=== PATIENT | female | born 1980 | race Caucasian/White ===

== ENCOUNTER 2019-04-05 08:16 | Outpatient (RCR) | payer OTHER, SELFPAY ==
[2019-04-05 08:30] LABS: Hematocrit 39.8 % (35.0-49.0); Hemoglobin 13.5 g/dL (12.0-15.0); Mean Corpuscular HGB Conc 33.9 g/dL (32.0-36.0); Mean Corpuscular Hemoglobin 30.5 pg (27.0-31.0); Mean Platelet Volume 8.8 fl (9.2-11.8); Platelet Count Result 292 K/mm3 (150-420); Red Blood Count 4.42 M/mm3 (4.20-5.40); Red Cell Distribution Width 12.8 % (11.6-14.4); White Blood Count 7.3 K/mm3 (4.8-10.8)
[2019-04-05 09:04] LABS: Band Neutrophils Percent 0 % (0-6); Basophils Absolute Manual 0.07 K/mm3 (0-0.1); Basophils Percent Manual 1 % (0-1); Eosinophils Absolute Manual 0.94 K/mm3 (0.02-0.5); Eosinophils Percent Manual 13 % (1-6); Lymphocytes Absolute Manual 1.67 K/mm3 (1.1-4.5); Lymphocytes Percent Manual 23 % (18-44); Monocytes Absolute Manual 0.51 K/mm3 (0.1-0.90); Monocytes Percent Manual 7 % (3-9); Neutrophils Absolute Manual 4.08 K/mm3 (1.7-7.2); Neutrophils Percent Manual 56 % (46-73); Total Cells Counted 100
[2019-04-05 09:05] LABS: Platelet Estimate Adequate (Adequate)
[2019-04-05 09:12] LABS: Alanine Aminotransferase 63 U/L (14-59); Albumin Level 3.9 g/dL (3.4-5.0); Alkaline Phosphatase 89 U/L (46-116); Anion Gap 15.3 mmol/L (7-16); Aspartate Amino Transferase 42 U/L (15-37); Bilirubin,Total 0.3 mg/dL (0.00-1.00); Blood Urea Nitrogen 15 mg/dL (7-18); Carbon Dioxide 26 mmol/L (21-32); Chloride 105 mmol/L (98-108); Cholesterol 218 mg/dL (0-200); Estimated Glomerular Filt Rate > 60; Glucose 128 mg/dL (70-99); HDL Direct 51 mg/dL (40-60); LDL Cholesterol Calculated 147 mg/dL (<130); Osmolality Calculated 296 mOsm/kg (285-295); Potassium 4.3 mmol/L (3.5-5.1); Sodium 142 mmol/L (136-145); Total Protein 7.2 g/dL (6.4-8.2); Triglycerides 98 mg/dL (0-150)
== END 2019-07-04 23:59 | disposition home or self-care (01) ==
LOC: CHSLAB 08:16
DX: L70.0 Acne vulgaris (principal); Z79.899 Other long term (current) drug therapy
CPT/HCPCS: 36415; 80053; 80061; 85025

== ENCOUNTER 2020-01-13 09:14 | Outpatient (CLI) | payer OTHER, SELFPAY ==
[2020-01-13 12:11] LABS: Thyroid Stimulating Hormone 0.75 uIU/mL (0.36-3.74)
[2020-01-17 21:44] LABS: Vitamin D 25 Hydroxy 34 ng/mL (30-100)
[2020-01-18 05:24] LABS: FSH 113.8 mIU/mL (***); LH 45.3 mIU/mL (***)
== END 2020-01-13 09:15 | disposition home or self-care (01) ==
LOC: CHSLAB 09:16
PROVIDERS: PCP Nurse Practitioner Family; Visit Provider Obstetrics & Gynecology
DX: N92.6 Irregular menstruation, unspecified (principal)
CPT/HCPCS: 36415; 82306; 83001; 83002; 84436; 84443

== ENCOUNTER 2020-01-29 09:57 | Outpatient (CLI) | payer OTHER, SELFPAY ==
--- NOTE | ~2020-01-29 | MM_ITS ---
EXAMINATION: MM screening supriya BI w karla HISTORY: Screening TECHNIQUE: Craniocaudal and mediolateral oblique 3-D tomosynthesis images were obtained and synthetic 2-D images were generated. CAD analysis was submitted and interpreted. COMPARISON: 06/20/2015 BREAST PARENCHYMAL COMPOSITION: There are scattered areas of fibroglandular density. FINDINGS: There is no evidence of suspicious mass, calcification, or architectural distortion to sugg est malignancy in either breast. There has been no suspicious interval change. IMPRESSION: 1. No mammographic evidence of malignancy. 2. Recommend routine screening mammography in one year. BI-RADS Category 1: Negative Reviewed, dictated and finalized at location A.
== END 2020-01-29 09:58 | disposition home or self-care (01) ==
LOC: CHSIMG 09:59
PROVIDERS: PCP Nurse Practitioner Family; Visit Provider Obstetrics & Gynecology
DX: Z12.31 Encounter for screening mammogram for malignant neoplasm of breast (principal)
CPT/HCPCS: 77063; 77067

== ENCOUNTER 2020-09-16 10:59 | Outpatient (CLI) | payer OTHER, SELFPAY ==
[2020-09-16 11:16] LABS: Hematocrit 39.9 % (35.0-49.0); Hemoglobin 13.5 g/dL (12.0-15.0); Mean Corpuscular HGB Conc 33.8 g/dL (32.0-36.0); Mean Corpuscular Hemoglobin 30.3 pg (27.0-31.0); Mean Corpuscular Volume 89.7 fL (78.0-102.0); Mean Platelet Volume 8.6 fl (9.2-11.8); Platelet Count Result 281 K/mm3 (150-420); Red Blood Count 4.45 M/mm3 (4.20-5.40); Red Cell Distribution Width 12.9 % (11.6-14.4); White Blood Count 5.9 K/mm3 (4.8-10.8)
== END 2020-09-16 11:00 | disposition home or self-care (01) ==
LOC: CHSLAB 11:01
PROVIDERS: PCP Nurse Practitioner Family; Visit Provider Obstetrics & Gynecology
DX: N92.0 Excessive and frequent menstruation with regular cycle (principal)
CPT/HCPCS: 36415; 85027

== ENCOUNTER 2020-09-30 14:28 | Outpatient (CLI) | payer OTHER, SELFPAY ==
--- NOTE | ~2020-09-30 | US_ITS ---
EXAMINATION: US pelvic complete w TV DATE: 09/30/2020 14:55 INDICATION: Right-sided pelvic fullness Comparison:No prior studies for comparison. TECHNIQUE: Multiple transabdominal and endovaginal sonographic images of the pelvis performed. FINDINGS: The uterus measures 8.2 x 3.5 x 5.7 cm. The endometrial complex measures 1.7 cm. The right ovary measures 2.8 x 2.2 x 1.9 cm and the left ovary measures 1.8 x 1.3 x 0.9 cm. There is 1.7 cm right ovarian cyst. There are small follicles in each ovary. Normal doppler signal in both ova supriya. There is no free fluid in the pelvis. There are no abnormal masses seen on either side. IMPRESSION: 1. Endometrial thickening measuring 1.7 cm. 2: Right ovarian cyst measuring 1.7 cm. Reviewed, dictated and finalized at location A.
== END 2020-09-30 14:29 | disposition home or self-care (01) ==
LOC: CHSIMG 14:29
PROVIDERS: PCP Nurse Practitioner Family; Visit Provider Obstetrics & Gynecology
DX: R19.00 Intra-abdominal and pelvic swelling, mass and lump, unspecified site (principal)
CPT/HCPCS: 76830; 76856

== ENCOUNTER 2020-11-19 14:44 | Outpatient (CLI) | payer OTHER, SELFPAY ==
[2020-11-21 07:05] LABS: FSH 107.3 mIU/mL (***)
== END 2020-11-19 14:45 | disposition home or self-care (01) ==
LOC: CHSLAB 14:46
PROVIDERS: PCP Nurse Practitioner Family; Visit Provider Obstetrics & Gynecology
DX: N95.1 Menopausal and female climacteric states (principal)
CPT/HCPCS: 36415; 83001

== ENCOUNTER 2020-12-04 02:34 | Day surgery (SDC) | payer OTHER, SELFPAY ==
[2020-12-03 07:41] VITALS: BMI 34.3
--- NOTE | 2020-12-03 12:49 | P.PNAN_ITS ---
Anes - Initial Pre Proc Eval Procedure: Operation Date: 12/04/20 09:30 Proposed Procedures p Hysteroscopy, Dilation and Curettage - Alfredo Enriquez MD Date/Time: 12/03/20 12:49 Surgeon: Alfredo Enriquez MD Pre Op Diagnosis: abnormal uterine bleeding Patient Data Age: 40 Gender: F Height: 1.68 m Weight: 96.5 kg Allergies Allergy/AdvReac Type Severity Reaction Status Date / Time No Known Allergies Verified 12/04/20 08:07 Home Medications Medication Instructions Recorded Confirmed Type cetirizine 10 mg capsule 10 mg PO DAILY 01/09/20 12/04/20 History esomeprazole magnesium 40 mg PO DAILY 12/04/20 12/04/20 History multivit with min-folic acid 1 tablet PO DAILY 12/04/20 12/04/20 History [Adult One Daily Multivitamin] Patient hx anesthesia problems: none Family hx anesthesia problems: none PMFSH Past Medical History Medical History Acute maxillary sinusitis Allergy status to unspecified drugs, medicaments and biological substances status (~05/2018) Blood glucose abnormal (~2017) Body aches delivery delivered (~2009) Chronic GERD Cough Dysphagia Endometritis PARMINDER (generalized anxiety disorder) Obesity Surgical History Surgical History History of cholecystectomy (~2010) Family History Family History Father Hypertension Family history of elevated blood lipids Cerebrovascular accident Mother Hypertension Grandparent Colon cancer Other Family history of ulcerative colitis Social History Social History Smoking status: Never smoker Second hand tobacco smoke exposure: No Alcohol intake: current Alcohol use details: social Substance use: never Substance use type: does not use Additional living arrangements comments: Daughter 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[employer] Gender identity (if verbalized by the patient): Female Spiritual care concerns: No Anes - Eval Final PreProcedure Day of Procedure 12/03/20 12:49 Patient weight: obese Heart: regular rate and rhythm Lungs: clear to auscultation and normal air movement Airway: Mallampati scale class II Neurological: alert and oriented Last oral intake: >/= 8 hours ASA classification: II Emergent: no Anesthetic plan: proceed Anesthesia type and monitoring: general GIVS and LMA Informed Consent: The patient's anesthetic plan and its attendant risks and benefits were discussed with the patient/family/POA. Questions were solicited and answers provided to the satisfaction of the patient/family/POA.
--- NOTE | 2020-12-04 06:11 | PM.IMHP ---
H&P: HPI History of Present Illness Date/Time: 12/04/20 06:11 Patient with history of intermittent early ovarian failure with recent episode of heavy bleeding. It did improve with last course of progesterone therapy. She had endometrial biopsy which showed treated hyperplasia which is due to progesterone therapy and it showed an endometrial polyp. She was recommended for D and C hysteroscopy for removal of endometrial polyp. Was offered progesterone only IUD which she declines. She has been informed of risk and benefits and alternatives to procedure and risk of not performing the procedure. She agrees with D and C and hysteroscopy and myosure removal of lesion if present. Chief Complaint: Abnormal uterine bleeding Review of Systems Review of Systems: All systems reviewed & are unremarkable except as noted in HPI and below Cardiovascular: Cardiovascular: Reports no additional cardiovascular complaints, Denies chest pain and Denies dyspnea Respiratory: Respiratory: Reports no additional respiratory complaints and Denies dyspnea Gastrointestinal: Gastrointestinal: Reports abdominal pain, Denies change in bowel habits, Denies diarrhea, Denies nausea and Denies vomiting Genitourinary: Genitourinary: Reports pelvic pain Musculoskeletal: Musculoskeletal: Reports back pain Integumentary/Breasts: Skin/Breast: Reports system reviewed and no additional complaints, except as docu Neurologic: Reports system reviewed and no additional complaints, except as documented [facility] Past Medical History Medical History Acute maxillary sinusitis Allergy status to unspecified drugs, medicaments and biological substances status (~05/2018) Blood glucose abnormal (~2017) Body aches delivery delivered (~2009) Chronic GERD Cough Dysphagia Endometritis PARMINDER (generalized anxiety disorder) Obesity Surgical History Surgical History History of cholecystectomy (~2010) Family History Family History Father Hypertension Family history of elevated blood lipids Cerebrovascular accident Mother Hypertension Grandparent Colon cancer Other Family history of ulcerative colitis Social History Social History Smoking status: Never smoker Second hand tobacco smoke exposure: No Alcohol intake: current Alcohol use details: social Substance use: never Substance use type: does not use Additional living arrangements comments: Daughter 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[employer] Gender identity (if verbalized by the patient): Female Spiritual care concerns: No Meds Home Medications and Allergies Home Medications Medication Instructions Recorded Confirmed Type cetirizine 10 mg capsule 10 mg PO DAILY 01/09/20 12/03/20 History omeprazole 40 mg PO DAILY 12/03/20 12/03/20 History Allergies Allergy/AdvReac Type Severity Reaction Status Date / Time No Known Allergies Verified 11/19/20 10:33 Exam Const: Orientation/consciousness: oriented to person and oriented to place HENMT: Head: normal to inspection Eyes: General: appearance normal, both eyes and all related structures Resp: Effort & Inspection: normal respiratory effort Auscultation: clear to auscultation bilaterally Cardio: Rate: regular rate Rhythm: regular rhythm GI: Inspection: normal to inspection GI Palp: No Rebound tenderness present : External Female Exam: normal external appearance Speculum Exam - Vagina: normal appearance of the vagina Speculum Exam - Cervix: normal appearance of the cervix Bimanual exam- vagina & uterus: normal bimanual exam, uterine shape normal and non-tender Bimanual Exam- Adnexa, other: no masses Neuro: General: oriented to person and oriented to place
[2020-12-04] MEDS: ACETAMINOPHEN 500 MG TABLET 1000 MG PO (08:12)
[2020-12-04] MEDS: LACTATED RINGERS 1,000 ML 30 ML IV CONT ×2 (08:15→10:10)
[2020-12-04 08:35] VITALS: BP 136/82; PULSE 93; RESP 20; TEMP 35.9; O2SAT 99
--- NOTE | 2020-12-04 09:15 | WPDHPUPDATE1 ---
History and Physical Update Update Date/Time: 12/04/20 09:15 History and Physical has been reviewed, including an updated exam of the patient. There are NO changes in the patient's condition. Risks, benefits, and alternatives have been discussed and questions answered. Patient agrees to proceed with procedure.
[2020-12-04] MEDS: ceFAZolin 2 GM/D5W 50 ML 2 GM/50 ML BAG IVPB (09:28)
--- NOTE | 2020-12-04 10:04 | P.OP_ITS ---
Procedure Note - Detailed Date of Procedure 12/04/20 Pre-op Diagnosis abnormal uterine bleeding Post-op Diagnosis same Procedure Performed Hysteroscopy and dilation and currettage and excision of endometrial lesion Surgeon Alfredo Enriquez MD Anesthesia MAC and local Indications Abnormal uterine bleeding. Patient with endometrial biopsy in office showing possible endometrial polyp. Findings hyperpigmented area at mid posterior uterine wall, Insufflation fluid media normal saline 750ccI/500cc O Description of Procedure After informed consent was obtained patient was taken to the operating room and adequate IV sedation was administered she was placed in high lithotomy position and prepped and draped in sterile fashion. Attention was turned to the vagina speculum was inserted. Single-tooth tenaculum placed on anterior lip of the cervix. 10 cc of 1% lidocaine was injected at the cervical vaginal interface that 2,5,8 and 10:00 o'clock. The cervix was dilated to a size a Loredo dilator. The hysteroscope was inserted the cavity was visualized. There was an area on the posterior mid uterus that was hyper pigmented glandular area. the MyoSure was then inserted and the hyper pigmented area was removed completely with the MyoSure. There were no other different appearing areas in the cavity. The MyoSure was removed and a curettage was performed. Single- tooth tenaculum removed hemostasis noted at the site the patient tolerated the procedure well sponge count correct. Estimated Blood Loss 5 Pathology yes (1. endometrial curretting of abnormal appearing area of endometrium 2. Currettage) Complications No immediate complications Condition stable Disposition same day
[2020-12-04 10:10] VITALS: BP 123/87; PULSE 84; RESP 16; O2SAT 99
[2020-12-04 10:35] VITALS: BP 125/86; PULSE 71; RESP 16
[2020-12-04 10:50] VITALS: BP 133/89; PULSE 60; RESP 16
== END 2020-12-04 10:56 | disposition home or self-care (01) ==
PROVIDERS: PCP Nurse Practitioner Family; Visit Provider Obstetrics & Gynecology
PROC: 0U5B8ZZ Destruction of Endometrium, Via Natural or Artificial Opening Endoscopic (ICD-10-PCS; CPT 58563; principal; 2020-12-04 09:30)
DX: N93.9 Abnormal uterine and vaginal bleeding, unspecified (principal); N84.0 Polyp of corpus uteri; K21.9 Gastro-esophageal reflux disease without esophagitis; N80.9 Endometriosis, unspecified; F41.1 Generalized anxiety disorder; E66.9 Obesity, unspecified; Z68.34 Body mass index [BMI] 34.0-34.9, adult
CPT/HCPCS: 58558; 88305; A9270; J0690; J1100; J1885; J2250; J2405; J2704; J3010; J7120

== ENCOUNTER 2021-01-28 10:15 | Outpatient (CLI) | payer OTHER, SELFPAY ==
[2021-01-28 10:25] LABS: Hematocrit 39.4 % (35.0-49.0); Mean Corpuscular Hemoglobin 28.8 pg (27.0-31.0); Mean Corpuscular Volume 87.2 fL (78.0-102.0); Mean Platelet Volume 8.7 fl (9.2-11.8); Platelet Count Result 264 K/mm3 (150-420); Red Blood Count 4.52 M/mm3 (4.20-5.40); Red Cell Distribution Width 13.3 % (11.6-14.4); White Blood Count 5.7 K/mm3 (4.8-10.8)
[2021-01-28 11:12] LABS: Band Neutrophils Percent 0 % (0-6); Basophils Absolute Manual 0.05 K/mm3 (0-0.1); Basophils Percent Manual 1 % (0-1); Eosinophils Absolute Manual 0.79 K/mm3 (0.02-0.5); Eosinophils Percent Manual 14 % (1-6); Lymphocytes Absolute Manual 1.99 K/mm3 (1.1-4.5); Lymphocytes Percent Manual 35 % (18-44); Monocytes Absolute Manual 0.22 K/mm3 (0.1-0.90); Monocytes Percent Manual 4 % (3-9); Neutrophils Absolute Manual 2.62 K/mm3 (1.7-7.2); Neutrophils Percent Manual 46 % (46-73); Platelet Estimate Adequate (Adequate); Total Cells Counted 100
[2021-01-28 11:46] LABS: Alanine Aminotransferase 39 U/L (14-59); Alkaline Phosphatase 84 U/L (46-116); Anion Gap 10 mmol/L (8-16); Aspartate Amino Transferase 20 U/L (15-37); Bilirubin,Total 0.4 mg/dL (0.00-1.00); Blood Urea Nitrogen 19 mg/dL (7-18); Calcium 8.9 mg/dL (8.5-10.1); Carbon Dioxide 27 mmol/L (21-32); Chloride 105 mmol/L (98-108); Cholesterol 193 mg/dL (0-200); Estimated Glomerular Filt Rate > 60; Glucose 109 mg/dL (70-99); HDL Direct 62 mg/dL (40-60); LDL Cholesterol Calculated 121 mg/dL (<130); Osmolality Calculated 297 mOsm/kg (285-295); Potassium 4.3 mmol/L (3.5-5.1); Sodium 142 mmol/L (136-145); Total Protein 6.6 g/dL (6.4-8.2); Triglycerides 48 mg/dL (0-150)
[2021-01-28 13:23] LABS: Hemoglobin A1C 5.9 % (<5.7)
== END 2021-01-28 10:16 | disposition home or self-care (01) ==
PROVIDERS: PCP Nurse Practitioner Family; Visit Provider Nurse Practitioner Family
DX: R73.09 Other abnormal glucose (principal); I10 Essential (primary) hypertension
CPT/HCPCS: 36415; 80053; 80061; 83036; 85025

== ENCOUNTER 2021-02-07 08:39 | Outpatient (CLI) | payer OTHER, SELFPAY ==
--- NOTE | ~2021-02-07 | MM_ITS ---
EXAMINATION: MM screening supriya BI w karla HISTORY: Screening mammogram TECHNIQUE: Craniocaudal and mediolateral oblique 3-D tomosynthesis images were obtained and synthetic 2-D images were generated. CAD analysis was submitted and interpreted. COMPARISON: 01/29/2020, 07/07/2015 bilateral digital screening mammogram examinations BREAST PARENCHYMAL COMPOSITION: There are scattered areas of fibroglandular density. FINDINGS: There is no evidence of suspicious mass, calcification, or architectural distortion to sugg est malignancy in either breast. There has been no suspicious interval change. IMPRESSION: 1. No mammographic evidence of malignancy. 2. Recommend routine screening mammography in one year. BI-RADS Category 1: Negative Reviewed, dictated and finalized at location A.
== END 2021-02-07 08:40 | disposition home or self-care (01) ==
LOC: CHSIMG 08:40
PROVIDERS: PCP Nurse Practitioner Family; Visit Provider Obstetrics & Gynecology
DX: Z12.31 Encounter for screening mammogram for malignant neoplasm of breast (principal)
CPT/HCPCS: 77063; 77067

== ENCOUNTER 2021-07-05 09:01 | Outpatient (CLI) | payer BC, SELFPAY ==
[2021-07-05 10:41] LABS: Hemoglobin A1C 6.1 % (<5.7)
[2021-07-05 10:49] LABS: Alanine Aminotransferase 27 U/L (14-59); Albumin Level 3.8 g/dL (3.4-5.0); Alkaline Phosphatase 78 U/L (46-116); Anion Gap 10 mmol/L (8-16); Aspartate Amino Transferase 15 U/L (15-37); Bilirubin,Total 0.2 mg/dL (0.00-1.00); Blood Urea Nitrogen 18 mg/dL (7-18); Calcium 8.8 mg/dL (8.5-10.1); Carbon Dioxide 26 mmol/L (21-32); Chloride 102 mmol/L (98-108); Estimated Glomerular Filt Rate > 60; Glucose 113 mg/dL (70-99); Osmolality Calculated 288 mOsm/kg (285-295); Potassium 4.3 mmol/L (3.5-5.1); Sodium 138 mmol/L (136-145); Total Protein 6.7 g/dL (6.4-8.2)
== END 2021-07-05 09:02 | disposition home or self-care (01) ==
LOC: CHSLAB 09:04
PROVIDERS: PCP Nurse Practitioner Family; Visit Provider Nurse Practitioner Family
DX: R73.09 Other abnormal glucose (principal)
CPT/HCPCS: 36415; 80053; 83036

== ENCOUNTER 2021-10-21 08:26 | Outpatient (CLI) | payer BC, SELFPAY ==
[2021-10-21 09:03] LABS: Hemoglobin A1C 5.9 % (<5.7)
== END 2021-10-21 08:27 | disposition home or self-care (01) ==
LOC: CHSLAB 08:31
PROVIDERS: PCP Nurse Practitioner Family; Visit Provider Nurse Practitioner Family
DX: R73.09 Other abnormal glucose (principal)
CPT/HCPCS: 36415; 83036

== ENCOUNTER 2022-02-24 08:36 | Outpatient (CLI) | payer BC, SELFPAY ==
--- NOTE | ~2022-02-24 | MM_ITS ---
EXAMINATION: MM screening supriya BI w karla HISTORY: Screening mammogram TECHNIQUE: Craniocaudal and mediolateral oblique 3-D tomosynthesis images were obtained and synthetic 2-D images were generated. CAD analysis was submitted and interpreted. COMPARISON: 02/07/2021, 01/29/2020, 07/07/2015 bilateral screening mammogram examinations BREAST PARENCHYMAL COMPOSITION: There are scattered areas of fibroglandular density. FINDINGS: There is no evidence of suspicious mass, calcification, or architectural distortion to sugg est malignancy in either breast. There has been no suspicious interval change. IMPRESSION: 1. No mammographic evidence of malignancy. 2. Recommend routine there is screening mammography in one year. BI-RADS Category 1: Negative Reviewed, dictated and finalized at location A. [employer]
== END 2022-02-24 08:37 | disposition home or self-care (01) ==
LOC: CHSIMG 08:41
PROVIDERS: PCP Nurse Practitioner Family; Visit Provider Obstetrics & Gynecology
DX: Z12.31 Encounter for screening mammogram for malignant neoplasm of breast (principal)
CPT/HCPCS: 77063; 77067

== ENCOUNTER 2022-06-30 12:00 | Outpatient (CLI) | payer BC, SELFPAY ==
[2022-06-30 13:27] LABS: Ferritin 10 ng/mL (8-252); Vitamin B12 799 pg/mL (193-986)
[2022-06-30 13:29] LABS: Folic Acid > 20.0 ng/mL (8.6->20); Thyroid Stimulating Hormone Reflex 0.84 u/IU/mL (0.36-3.74)
== END 2022-06-30 12:01 | disposition home or self-care (01) ==
LOC: CHSLAB 12:02
PROVIDERS: PCP Family Medicine; Visit Provider Family Medicine
DX: E11.9 Type 2 diabetes mellitus without complications (principal); E53.8 Deficiency of other specified B group vitamins; D50.9 Iron deficiency anemia, unspecified
CPT/HCPCS: 36415; 82607; 82728; 82746; 84443

== ENCOUNTER 2022-07-01 18:17 | Outpatient (CLI) | payer BC, SELFPAY ==
[2022-07-01 18:33] LABS: Occult Blood Negative (Negative)
== END 2022-07-01 18:18 | disposition home or self-care (01) ==
LOC: CHSLAB 18:19
PROVIDERS: PCP Family Medicine; Visit Provider Family Medicine
DX: R53.83 Other fatigue (principal)
CPT/HCPCS: 82272

== ENCOUNTER 2023-03-04 07:59 | Outpatient (CLI) | payer BC, SELFPAY ==
--- NOTE | ~2023-03-04 | MM_ITS ---
EXAMINATION: MM screening [facility] BI w karla HISTORY: Screening mammogram TECHNIQUE: Craniocaudal and mediolateral oblique 3-D tomosynthesis images were obtained and synthetic 2-D images were generated. CAD analysis was submitted and interpreted. COMPARISON: 02/24/2022, 02/07/2021, 01/29/2020 BREAST PARENCHYMAL COMPOSITION: There are scattered areas of fibroglandular density. FINDINGS: There are changes of interval reduction mammoplasty. There are a few postoperative oil cyst s/fat necrosis in both breasts. No suspicious mass, calcification, or architectural distortion are id entified in either breast to suggest malignancy. There has been no suspicious interval change. IMPRESSION: 1. No mammographic evidence of malignancy. 2. Recommend routine screening mammography in one year. BI-RADS Category 2: Benign finding(s). Reviewed, dictated and finalized at location A. [employer]ER
== END 2023-03-04 08:00 | disposition home or self-care (01) ==
LOC: CHSIMG 08:00
PROVIDERS: PCP Internal Medicine; Visit Provider Obstetrics & Gynecology
DX: Z12.31 Encounter for screening mammogram for malignant neoplasm of breast (principal)
CPT/HCPCS: 77063; 77067

== ENCOUNTER 2024-04-28 08:32 | Outpatient (CLI) | payer BC, SELFPAY ==
--- NOTE | ~2024-04-28 | MM_ITS ---
EXAMINATION: MM screening supriya BI w karla HISTORY: Screening. History of breast reduction surgery. TECHNIQUE: Craniocaudal and mediolateral oblique 3-D tomosynthesis images were obtained and synthetic 2-D images were generated. CAD analysis was submitted and interpreted. COMPARISON: Comparison to multiple prior studies sequentially, with oldest reviewed study dated 06/2015. BREAST PARENCHYMAL COMPOSITION: Not dense: There are scattered areas of fibroglandular density. FINDINGS: There is distortion in both breasts with associated coarse calcifications, consistent with fat necrosis secondary to prior breast reduction surgery.. No suspicious masses, calcifications or ar chitectural distortion to suggest malignancy. IMPRESSION: 1. No mammographic evidence of malignancy. 2. Recommend routine screening mammography in one year. BI-RADS Category 2: Benign finding(s). Reviewed, dictated and finalized at location B. ILL HAND
== END 2024-04-28 08:33 | disposition home or self-care (01) ==
PROVIDERS: PCP Student in an Organized Health Care Education/Training Program; Visit Provider Obstetrics & Gynecology
DX: Z12.31 Encounter for screening mammogram for malignant neoplasm of breast (principal)
CPT/HCPCS: 77063; 77067